=== PATIENT | female | born 1940 | race Caucasian/White ===

== ENCOUNTER 2016-09-25 12:25 | Day surgery (SDC) | payer MEDICARE ==
[~2016-09-25] VITALS: Ht 160 cm; Wt 68.5 kg
[~2016-09-25 12:25] MED LIST: 0.9% Sodium Chloride 1,000 ML IV SCH; CALC-3 PO; CRAN1TAB5 PO; D-MA1POW PO; ESTR42.52 VG; OMEP20TA24 PO; PRAV10TA2 PO; Sodium Chloride LOK Flush 10 mL Syringe IV PRN; fentaNYL-PF 50 mCg/mL 2 mL Inj IVPUSH PRN
[2016-09-25] MEDS ORDERED: MULT-666 PO (12:44)
[2016-09-25 12:49] VITALS: BP 123/57; PULSE 70; O2SAT 98
[2016-09-25 13:55] VITALS: BP 109/55; PULSE 77; RESP 16; O2SAT 99
[2016-09-25 14:05] VITALS: BP 113/56; PULSE 64; RESP 16; O2SAT 97
--- NOTE | 2016-09-25 14:14 | ENDO ---
[address] [address] ENDOSCOPY PROCEDURE PATIENT: BART SU : 1940 MR#: [id number] ADMIT: 09/25/2016 JOB ID: [id number] DATE: 09/25/2016 PROCEDURE: Colonoscopy. INDICATIONS: Patient with a history of colon polyps. Patient's ASA classification is two. Mallampati score is two. MEDICATIONS: Versed 5 mg, fentanyl 100 mcg. INSTRUMENT USED: PCF H 180 AL. PREPARATION QUALITY: Fair. PROCEDURE DETAILS: After informed consent was obtained, the patient was brought into the GI suite, where she was placed on oxygen via nasal cannula and monitored with continuous pulse oximeter, telemetry, and blood pressure monitoring. A time-out was performed, then she was placed in the left lateral decubitus position and medications were administered for sedation. Digital rectal exam was performed, which was unremarkable. The colonoscope was then inserted into the rectum and advanced under direct visualization to the cecum, which was identified by the presence of the ileocecal valve and appendiceal orifice. Once the cecum was reached, the colonoscope was withdrawn back into the rectum as the mucosa and lumen were examined. In the rectum, retroflexion was performed. Following retroflexion, the remaining air in the rectum was suctioned and the procedure was completed. FINDINGS: 1. In the ascending colon, there was a diminutive polyp that was removed with cold biopsy forceps. 2. In the transverse colon, there was an approximately 4-5 mm sessile polyp that was removed with a cold snare. The remainder of the colon exam was unremarkable. IMPRESSION: 1. Ascending colon polyp. 2. Transverse colon polyp. RECOMMENDATION: 1. Fiber rich diet. 2. Repeat colonoscopy in five years. COMPLICATIONS: None. ESTIMATED BLOOD LOSS: Less than 5 mL.
[2016-09-25 14:15] VITALS: BP 115/56; PULSE 68; RESP 16; O2SAT 98
[2016-09-25 14:20] VITALS: BP 127/68; PULSE 72; RESP 16; O2SAT 98
--- NOTE | 2016-09-30 10:43 | PATH ---
SURGICAL PATHOLOGY Attending Physician:Richard Aguila CASE STATUS: Signed Out PATIENT NAME: BART SU PID: [id number] : 1940 DATE COLLECTED:09/25/2016 00:00 SPECIMEN: 1: Colon, Polyp 2: Colon, Polyp CLINICAL HISTORY: 1). ASCENDING POLYP 2). TRANSVERSE POLYP FINAL DIAGNOSIS: 1.ASCENDING COLON POLYP: BENIGN COLONIC MUCOSA CONSISTENT WITH POLYPOID REDUNDANCY. No evidence of malignancy or dysplasia. 2.TRANSVERSE COLON POLYP: TUBULAR ADENOMA. ICD10 D12.6 GROSS DESCRIPTION: The specimens are received in formalin, labeled with the patient's name, and sublabeled as the following: (1) ascending polyp; (2) transverse polyp. (1) The specimen consists of multiple fragments of manjarrez-white glistening rubbery semitranslucent tissue (0.5 x 0.3 x 0.1 cm in aggregate). Section code: (1A) tissue. Specimen entirely submitted. (2) The specimen consists of a manjarrez-white glistening rubbery semitranslucent sessile polyp (0.3 x 0.3 x 0.2 cm). Ink code: black-resection margin. Section code: (1A) intact polyp. Specimen entirely submitted. 09/27/16 MICRO DESCRIPTION: See diagnosis. ICD-9 CODES: CPT CODES: 1: 52658 2: 58349 Electronically Signed Out Clifford Ayala MD [facility] Pathology [facility] [address], [place] [address] Technical component performed at [facility], [address] [place] [address] [address], [address]
== END 2016-09-25 23:59 | disposition home or self-care (01) ==
LOC: END 12:25
PROVIDERS: ATTEND Internal Medicine Gastroenterology
DX: Z12.11 Encounter for screening for malignant neoplasm of colon (principal); D12.3 Benign neoplasm of transverse colon; K63.5 Polyp of colon; Z86.010 Personal history of colon polyps; K21.9 Gastro-esophageal reflux disease without esophagitis; Z85.028 Personal history of other malignant neoplasm of stomach
CPT/HCPCS: 45380; 45385; 99153; G0500; J2250; J3010; J7030